=== PATIENT | male | born 1940 | race Caucasian/White ===

== ENCOUNTER → 2018-12-26 | Outpatient (CLI) | payer OTHER ==
[~2018-12-26] VITALS: Ht 170.2 cm; Wt 85.7 kg
[~2018-12-26] MED LIST: ASPIR 8181 MG PO; FISH OIL 1,001000 M2 PO; FLOMAX0.4 MG PO; IMDUR 30 MG TAB30 M1 PO; LEXAPRO20 MG PO; LIPITOR10 MG PO; LUPRON DEPOT22.5 MG IM; NITROGLYCERIN0.4 MG SUBLING; PLAVIX 75 MG TA75 M1 PO; TOPROL XL25 MG PO; UNICOMPLEX M TA1 TA1 PO
[2018-12-26 14:38] VITALS: BP 149/83
--- NOTE | 2018-12-26 15:00 | NUR ---
Pain Clinic Assessment: 1. History of Osteoarthritis: Not Applicable History of Rheumatoid Arthritis: Not Applicable 2. Height: 5 ft. 7 in. 170.2 cm. Weight: 189.0 lb. oz. 85.730 kg. Patient's BMI: 29.6 3. Vital Signs: BP: 149/83 Pulse: 64 Resp: 16 Temp: 02 Sat: 96 ECG Mon: 4. Pain Intensity: 5. Fall Risk: Dizziness: N Needs help standing or walking: N Fallen in the last 3 months: N Fall risk comments: 6. Patient on Blood Thinner: Clopidogrel Bisulf(Plavix 7. History of Hypertension: Y 8. Opioid Therapy greater than 6 weeks: N Opiate Contract Signed: 9. Risk Assessment Tool Provided: 10. Functional Assessment Tool: 11. Recreational Drug Use: Never Drug Type: Tobacco Use: Never Smoker Tobacco Type: Amount or Packs/day: How Many Years: Alcohol Use: Yes Frequency: Daily Quant: 1-2
--- NOTE | 2019-01-03 07:55 | HPC ---
[facility] [address] [place] [address] PAIN MANAGEMENT CONSULTATION Name: HOWARD LOZANO Room #: REG Chrissy Nilam.#: [id number] Admission: 12/26/18 Attend Phys: Neno Downs DO Discharge: Date of : 42 Report #: [id number] THIS REPORT FOR: //name// CC: Neno Carroll MD DATE OF SERVICE: 12/26/2018 REFERRING PHYSICIAN: Mohsen Carroll M.D. CHIEF COMPLAINT: Neck pain, bilateral upper extremity pain and paresthesias. HISTORY OF PRESENT ILLNESS: As you know, the patient is a very pleasant 78-year-old male who has been referred to our service to discuss treatment options for neck pain and bilateral upper extremity pain with paresthesias. The patient indicates this pain began in 2012. He denies injury or trauma that may have led to symptom occurrence. He has undergone EMG in the past, which showed positive for bilateral carpal tunnel syndrome. He has not done much to address this issue. He has been utilizing briz-qqi-sxqhwtm oral medications, without much efficacy. The patient continues to experience pain that ultimately took him to his primary care team for evaluation. He was evaluated at that time, underwent imaging of the cervical spine as there was concern that the patient had cervical radiculopathy. Imaging showed some arthritic changes in the cervical spine, but no specific pathology. The patient was subsequently referred to our clinic to discuss options for treatment. The patient indicates pain is intermittent, describes the pain as shooting, numbness and tingling. He indicates no significant pain as much as numbness and tingling involving his wrists, into his hands, mainly intermittent neck pain. The patient states he did see Dr. Rubio from a Neurosurgery standpoint and was advised he has a cervical radiculopathy, but at this point, he does not wish to look towards aggressive surgical options. He indicates his pain is exacerbated with "too bigger pillow" and he states his pain is improved with "smaller pillow or not at all". He has been referred to our service to discuss treatment options for suspected cervical radiculopathy and positive findings of carpal tunnel syndrome. PAST MEDICAL HISTORY: 1. Coronary artery disease, requiring chronic anticoagulation. 2. Hypertension. 3. Dyslipidemia. 4. Depression. 5. History of prostate cancer. PAST SURGICAL HISTORY: Abdominal herniorrhaphy. [facility] [address] [place] [address] PAIN MANAGEMENT CONSULTATION Name: HOWARD LOZANO Room #: REG RIANNA Mancia#: [id number] Admission: 12/26/18 Attend Phys: Neno Downs DO Discharge: Date of : 42 Report #: [id number] SOCIAL HISTORY: The patient denies tobacco, IV or illicit drug use. Admits to approximately 2 alcohol beverages per day. He is retired, retired nearly 10 years ago. He is not receiving workmen's compensation nor is he trying to obtain disability benefits. He is not in litigation in regards to pain. He is unaccompanied at today's visit. REVIEW OF SYSTEMS: Positive for fatigue, wearing corrective eyewear, hearing loss with tinnitus, shortness of breath with walking or lying flat, heart trouble, frequent urination, nocturia, sexual difficulty, numbness and tingling sensations involving the bilateral upper extremities, hormonal problems and urination issues. All other review of systems negative per 12-point review of systems, other than those listed in the history of present illness. Pain impact score 27/70, indicating pijj-fl-bdleeqot interference of daily activities secondary to pain. ALLERGIES: No reported drug allergies. CURRENT MEDICATIONS: Multivitamin 1 tab per day, tamsulosin 0.4 mg once a day, nitroglycerin 0.4 mg p.r.n., metoprolol 25 mg once a day, Lupron 22.5 mg intramuscular as directed, isosorbide dinitrate 30 mg once a day, Dale-3 fish oil 1 tab per day, escitalopram 20 mg per day, Plavix 75 mg per day, atorvastatin 10 mg per day and aspirin 81 mg per day. IMAGING: No imaging available. PQRS: The patient has no known osteoarthritis. No rheumatoid arthritis. He is placing pain intensity today at 0-2/10. He is not a fall risk, has not had a fall in the last 3 months. He is on blood thinners and he is treated for hypertension. He is on Plavix currently and has been on it for an extended period of time. He is not taking opioids. He has a low opioid addiction potential. His pain impact score is 27/70, indicating yvic-km-iyldhqup interference of daily activities secondary to pain. PHYSICAL EXAMINATION: VITAL SIGNS: Blood pressure 149/83, pulse 64, respiratory rate 16 and unlabored. The patient is 96% on room air. Height 5 feet 7 inches tall, weight 189 pounds and BMI calculated 29.6. GENERAL: Well-developed, well-nourished and well-hydrated 78-year-old male, appearing stated age, placing current pain score at 0-2/10. HEENT: Head normocephalic, atraumatic. Pupils equal, round and reactive to light. Extraocular muscles are intact. Sclerae nonicteric. Conjunctivae without injection. NEUROLOGIC: Cranial nerves 2-12 grossly intact. Speech is fluent. The patient deemed an excellent historian. [facility] [address] [place] [address] PAIN MANAGEMENT CONSULTATION Name: HOWARD LOZANO Room #: REG RIANNA Mancia#: [id number] Admission: 12/26/18 Attend Phys: Neno Downs DO Discharge: Date of : 42 Report #: [id number] LUNGS: Clear. No wheezes, rhonchi or rales. CARDIOVASCULAR: Regular. No appreciable gallop, no rub. ABDOMEN: Soft, nontender and nondistended. Normoactive bowel sounds. EXTREMITIES: Show no clubbing, no cyanosis and no edema. MUSCULOSKELETAL: Upper extremity strength appears symmetrical 5/5, intact to light touch from C5-T1 dermatomes. Deep tendon reflexes are symmetrical at biceps, brachioradialis and triceps. Tinel's sign is positive. Phalen's sign is negative. Cervical provocation testing including extension, rotation and lateral flexion all intensify neck pain. No radiation of symptoms. Spurling's test is equivocal. ASSESSMENT: 1. Cervical radiculopathy. 2. Cervical spondylosis with radiculopathy. 3. Bilateral carpal tunnel syndrome. 4. Chronic intractable pain. PLAN: 1. The patient has been referred to our service by his primary care physician to discuss treatment options for suspected cervical radiculopathy. The patient has seen Neurosurgery and they have confirmed a cervical radiculopathy as the source of the patient's pain. Apparently, he has had some imaging, though this is not available to us. He is going to drop imaging by to us as quickly as possible for us to review, but given the distribution of symptoms and the history he provides, it does appear that he is suffering from cervical radiculopathy and certainly has a component of bilateral carpal tunnel syndrome based on an EMG report he had recently. We discussed treatment options for cervical radiculopathy and carpal tunnel today. 2. We discussed physical therapy, stretching exercises, core strengthening and traction techniques to address cervical radicular symptoms. We discussed medication management, adding a neuropathic pain medication and low-dose opioid for pain control. Unfortunately, the patient cannot take anti-inflammatory medication due to concomitant use of Plavix. We discussed cervical epidural injections under fluoroscopic guidance as a way to address his cervical radiculopathy and surgical options. From a carpal tunnel standpoint, treatment options would include cock-up splints to be utilized on a nightly basis. Medication management in the form of a neuropathic pain medication and low-dose opioid for pain control. We also discussed surgical decompression of the median nerves bilaterally. After reviewing the risks and benefits of the treatment options proposed for both the cervical radiculopathy and the carpal tunnel, the following was provided. 3. The patient will be sent for physical therapy twice a week for 6 weeks to evaluate and treat with traction techniques for cervical radiculopathy. They can also provide treatment options for his carpal tunnel syndrome noted on physical exam today. The patient will begin the physical therapy as quickly as possible. We will see him back in followup visit once he has completed his PT. [address] [address] PAIN MANAGEMENT CONSULTATION Name: HOWARD LOZANO Room #: REG RIANNA Mancia#: [id number] Admission: 12/26/18 Attend Phys: Neno Downs DO Discharge: Date of : 42 Report #: [id number] 4. No medication changes made at today's visit. We discussed the possibility of starting the patient on a neuropathic pain medication, but he was resistant to initiate any medications until he tries a more conservative treatment approach. Certainly this could be added if necessary for neuropathic pain control. We would recommend gabapentin 300 mg 3 times a day initial dosing with escalation to reach efficacy. 5. We discussed the possibility of having the patient come off his Plavix to undergo a cervical epidural injection. At this time, he wishes to use a more conservative approach, though he would entertain this option if his pain does intensify. The patient will need to gain clearance to come off his Plavix for 7 days per [facility] guidelines, requiring patients to be off Plavix for 7 days before providing neural axial injections such as cervical epidural injection. If the patient can gain clearance to come off the Plavix and he wishes to do so, he will come off the Plavix 7 days prior to a cervical epidural injection, undergo the injection and then restart the Plavix that day. We will consider this option if more conservative treatment is not effective. 6. We wish to thank Dr. Carroll for the referral of the patient to our clinic. We will keep you apprised of his response to treatment as we address both his cervical radicular symptoms and his bilateral carpal tunnel syndrome symptoms. Again, we wish to thank you for the opportunity to see the patient in consultation. <ELECTRONICALLY SIGNED> By: Neno Downs DO 01/03/19 [id number] Neno Downs DO /nt
== END ==
LOC: PAIN 06:58
DX: M47.22 Other spondylosis with radiculopathy, cervical region (principal); G89.4 Chronic pain syndrome; G56.03 Carpal tunnel syndrome, bilateral upper limbs; Z79.899 Other long term (current) drug therapy

== ENCOUNTER → 2019-09-20 | Outpatient (CLI) | payer OTHER | LOC: RAD 12:55 | DX: M25.471 Effusion, right ankle (principal); M25.571 Pain in right ankle and joints of right foot ==